=== PATIENT | female | born 1960 | race Two or more races ===

== ENCOUNTER 2021-04-03 05:45 | Day surgery (SDC) | payer OTHER ==
[~2021-04-03 05:45] MED LIST: BONIVA150 MG PO; LEVOTHYROXINE25 MCG PO; PRAVASTATIN SOD20 MG PO; ZESTRIL20 MG PO
== END 2021-04-03 21:50 | disposition home or self-care (01) ==
LOC: CIR.AMB 05:45
PROVIDERS: ATTEND Surgery
DX: D05.12 Intraductal carcinoma in situ of left breast (principal); C77.3 Secondary and unspecified malignant neoplasm of axilla and upper limb lymph nodes; Z20.822 Contact with and (suspected) exposure to COVID-19

== ENCOUNTER 2021-06-06 02:00 | Emergency (ER) | payer OTHER ==
[~2021-06-06] VITALS: Ht 154.9 cm; Wt 71.2 kg
[2021-06-06] MEDS ORDERED: NAPROXEN375 MG PO (04:53)
[2021-06-06] MEDS ORDERED: CLINDAMYCIN HC300 MG PO (04:53)
== END 2021-06-06 05:00 | disposition home or self-care (01) ==
LOC: ER 02:00
DX: L76.22 Postprocedural hemorrhage of skin and subcutaneous tissue following other procedure (principal); N61.0 Mastitis without abscess

== ENCOUNTER 2024-05-11 05:57 | Day surgery (SDC) | payer OTHER ==
[2024-05-10 12:40] VITALS: BP 137/81
[~2024-05-11] VITALS: Ht 157.5 cm; Wt 66.2 kg
[~2024-05-11 05:57] MED LIST changes: +CLINDAMYCIN HC300 MG PO; +NAPROXEN375 MG PO; +TAMOXIFEN CITRA20 MG PO
[2024-05-11] MEDS ORDERED: GENTAMICIN SULFATE 40 MG/ML VIAL IR ONE (11:30)
[2024-05-11] MEDS ORDERED: CEFAZOLIN SODIUM 1,000 MG VIAL IV ONE (11:30)
[2024-05-11] MEDS ORDERED: POVIDONE-IODINE SCRUB 118 ML BOTT TOP ONE (11:30)
[2024-05-11] MEDS ORDERED: POVIDONE-IODINE 118 ML BOTT TOP ONE ×2 (11:30)
[2024-05-11] MEDS ORDERED: CLINDAMYCIN PHOSPHATE 150 MG/ML (900mg) IV ONE (11:30)
== END 2024-05-11 14:30 | disposition home or self-care (01) ==
LOC: CIR.AMB 05:57
PROVIDERS: ATTEND Surgery
DX: D05.11 Intraductal carcinoma in situ of right breast (principal); R59.0 Localized enlarged lymph nodes; Z90.11 Acquired absence of right breast and nipple; I10 Essential (primary) hypertension; E03.9 Hypothyroidism, unspecified